=== PATIENT | male | born 1960 | race Caucasian/White ===

== ENCOUNTER 2017-08-10 15:10 | Inpatient (IN) | payer OTHER ==
[~2017-08-10] VITALS: Ht 185.4 cm; Wt 165.2 kg
[2017-08-10 15:22] LABS: GLUCOSE,POINT OF CARE 117 MG/DL (70-110)
[2017-08-10] MEDS ORDERED: AMLO-512 PO (15:23)
[2017-08-10] MEDS ORDERED: ALBU8HFA IH (15:23)
[2017-08-10] MEDS ORDERED: DIGO125T PO (15:23)
[2017-08-10] MEDS ORDERED: EVOL420W SQ (15:23)
[2017-08-10] MEDS ORDERED: FAMO20 PO (15:23)
[2017-08-10] MEDS ORDERED: HYDR-4061 PO (15:23)
[2017-08-10] MEDS ORDERED: CLOP75 PO (15:23)
[2017-08-10] MEDS ORDERED: BUPR75 PO (15:23)
[2017-08-10] MEDS ORDERED: SULF1TAB42 PO (15:23)
[2017-08-10] MEDS ORDERED: SLOWK8 PO (15:23)
[2017-08-10] MEDS ORDERED: LOSA50TA37 PO (15:23)
[2017-08-10] MEDS ORDERED: CEPH500 PO (15:23)
[2017-08-10] MEDS ORDERED: ASPI81 PO (15:23)
[2017-08-10] MEDS ORDERED: OMEP20 PO (15:23)
[2017-08-10] MEDS ORDERED: METF850T2 PO (15:23)
[2017-08-10] MEDS ORDERED: NITR2.5 PO (15:23)
[2017-08-10] MEDS ORDERED: ADAL40PE SQ (15:23)
[2017-08-10] MEDS ORDERED: ZOLP10TA7 PO (15:23)
[2017-08-10] MEDS ORDERED: GABA-531 PO (15:23)
[2017-08-10] MEDS ORDERED: EZET10 PO (15:23)
[2017-08-10] MEDS ORDERED: METO50TA12 PO (15:23)
[2017-08-10] MEDS ORDERED: BACL10TA PO (15:23)
[2017-08-10] MEDS ORDERED: FURO40 PO (15:23)
[2017-08-10] MEDS ORDERED: HYD25 PO (15:23)
[2017-08-10] MEDS ORDERED: KDUR10 PO (18:13)
[2017-08-10] MEDS ORDERED: BUPR150SR PO (18:13)
[2017-08-10] MEDS ORDERED: IPRATROPIUM BROMIDE 0.5 MG/2.5 ML NEB SOLUTION NEB ONE (18:15)
[2017-08-10] MEDS ORDERED: ALBUTEROL SULFATE 2.5 MG/0.5 ML NEB SOLUTION NEB ONE (18:15)
[2017-08-10] MEDS ORDERED: HYDROCODONE/ACETAMINOPHEN 5-325 MG TABLET PO ONE (18:15)
[2017-08-10 18:33] LABS: BASOPHILS % (AUTO) 0.4 % (0.0-2.0); EOSINOPHILS % (AUTO) 2.8 % (1.0-6.0); HEMATOCRIT 41.6 % (41-53); HEMOGLOBIN 14.2 g/dL (13.5-17.5); MEAN CORPUSCULAR HEMOGLOBIN 29.4 pg (26.0-34.0); MEAN CORPUSCULAR VOLUME 86 fL (80-100); MONOCYTES # (AUTO) 0.9 K/uL (0.1-1.0); MONOCYTES % (AUTO) 7.7 % (2.0-9.0); NEUTROPHILS % (AUTO) 73.1 % (40.0-70.0); PLATELET COUNT (AUTO) 287 K/uL (150-450); RED BLOOD CELL COUNT(AUTO) 4.81 MIL/uL (4.50-5.90); RED CELL DISTRIBUTION WIDTH 15.6 % (11.5-14.5); WHITE BLOOD COUNT (AUTO) 12.3 K/uL (4.5-11.0)
[2017-08-10] MEDS ORDERED: ALBUTEROL SULFATE HFA 90 MCG/PUFF 8 GM INHALER IH ONE (18:45)
[2017-08-10] MEDS ORDERED: VANCOMYCIN HCL 1 GM/D5% WATER 200 ML IV ONE (18:45)
[2017-08-10 18:50] LABS: ANION GAP 9 mmol/L (8-16); CARBON DIOXIDE 29 mmol/L (22-29); CHLORIDE 103 mmol/L (98-107); CREATININE 0.98 mg/dL (0.60-1.30); GLOMERULAR FILTR. RATE CALC > 60 mL/min (>60); POTASSIUM 4.2 mmol/L (3.5-5.1); SODIUM SERUM 141 mmol/L (136-145); UREA NITROGEN, BLOOD 11 mg/dL (7-18)
[2017-08-10 19:01] LABS: ALANINE AMINOTRANSFERASE 63 U/L (12-78); ALBUMIN 3.4 g/dL (3.4-5.0); ASPARTATE AMINOTRANSFERASE 36 U/L (15-37); BILIRUBIN,TOTAL 0.5 mg/dL (0.1-1.0); TOTAL PROTEIN, SERUM 7.6 g/dL (6.4-8.2)
[2017-08-10 19:12] LABS: B-TYPE NATRIURETIC PEPTIDE 15 pg/mL (0-100)
[2017-08-10] MEDS ORDERED: ACETAMINOPHEN 325 MG TABLET PO PRN (21:15)
[2017-08-10] MEDS ORDERED: MAGNESIUM HYDROXIDE SUSPENSION 30 ML UDCUP PO PRN (21:15)
[2017-08-10] MEDS ORDERED: ZOLPIDEM TARTRATE 5 MG TABLET PO PRN (21:15)
[2017-08-10] MEDS ORDERED: ALBUTEROL SULFATE 2.5 MG/0.5 ML NEB SOLUTION NEB PRN (21:15)
[2017-08-10] MEDS ORDERED: DEXTROSE 50%-WATER 25 GM/50 ML SYRINGE IVP PRN (21:15)
[2017-08-10] MEDS: VANCOMYCIN HCL 1 GM/D5% WATER 200 ML IV ONE ×2 (21:49→22:06)
[2017-08-10 23:19] VITALS: BP 145/76
[2017-08-11] MEDS: OxyCODONE HCL/ACETAMINOPHEN 5-325 MG TABLET PO PRN ×6 (00:26→23:55)
[2017-08-11] MEDS: HEPARIN SODIUM,PORCINE 5,000 UNITS/ML VIAL SQ SCH ×4 (00:26→23:56)
[2017-08-11] MEDS ORDERED: SODIUM CHLORIDE 0.9% 250 ML IV ONE (00:45)
[2017-08-11 05:11] VITALS: BP 156/85
[2017-08-11 05:33] LABS: GLUCOSE,POINT OF CARE 137 MG/DL (70-110)
[2017-08-11 07:01] LABS: ANION GAP 8 mmol/L (8-16); CALCIUM, TOTAL 8.6 mg/dL (8.8-10.5); CARBON DIOXIDE 29 mmol/L (22-29); CHLORIDE 104 mmol/L (98-107); CREATININE 0.96 mg/dL (0.60-1.30); GLOMERULAR FILTR. RATE CALC > 60 mL/min (>60); POTASSIUM 3.9 mmol/L (3.5-5.1); SODIUM SERUM 141 mmol/L (136-145); UREA NITROGEN, BLOOD 10 mg/dL (7-18)
[2017-08-11 08:09] VITALS: BP 130/70
[2017-08-11] MEDS: CLOPIDOGREL BISULFATE 75 MG TABLET PO SCH (09:00)
[2017-08-11] MEDS: DOCUSATE SODIUM 100 MG CAPSULE PO SCH ×2 (09:00→20:27)
[2017-08-11] MEDS: ASPIRIN 81 MG CHEWABLE TABLET PO SCH (09:01)
[2017-08-11] MEDS: PANTOPRAZOLE SODIUM 40 MG DR TABLET PO SCH (09:01)
[2017-08-11] MEDS: VANCOMYCIN HCL 1.5 GM in DEXTROSE 5%-WATER 250 ML IV SCH ×3 (09:02→23:56)
[2017-08-11 12:00] VITALS: BP 150/80
[2017-08-11] MEDS: INSULIN ASPART 100 UNITS/ML SQ PRN (12:01)
[2017-08-11 12:07] LABS: GLUCOSE COMMENT 1 Received Meds; GLUCOSE,POINT OF CARE 193 MG/DL (70-110)
[2017-08-11 16:04] VITALS: BP 144/93
[2017-08-11 18:02] LABS: GLUCOSE,POINT OF CARE 132 MG/DL (70-110)
[2017-08-11 20:00] VITALS: BP 124/69
[2017-08-11 20:58] LABS: GLUCOSE,POINT OF CARE 137 MG/DL (70-110)
[2017-08-11] MEDS ORDERED: ATORVASTATIN CALCIUM 20 MG TABLET PO SCH (21:00)
[2017-08-11 23:32] VITALS: BP 116/59
[2017-08-12 03:55] VITALS: BP 117/54
[2017-08-12] MEDS: OxyCODONE HCL/ACETAMINOPHEN 5-325 MG TABLET PO PRN ×2 (04:30→08:51)
[2017-08-12 06:19] LABS: BASOPHILS % (AUTO) 0.7 % (0.0-2.0); EOSINOPHILS % (AUTO) 3.4 % (1.0-6.0); HEMOGLOBIN 13.6 g/dL (13.5-17.5); LYMPHOCYTES # (AUTO) 2.1 K/uL (1.0-4.8); LYMPHOCYTES % (AUTO) 23.6 % (22.0-44.0); MEAN CORPUSCULAR HEMOGLOBIN 29.7 pg (26.0-34.0); MEAN CORPUSCULAR HGB CONC 33.9 G/dL (31.0-37.0); MEAN CORPUSCULAR VOLUME 87 fL (80-100); MONOCYTES # (AUTO) 0.5 K/uL (0.1-1.0); MONOCYTES % (AUTO) 5.7 % (2.0-9.0); NEUTROPHILS # (AUTO) 5.8 K/uL (1.8-7.7); NEUTROPHILS % (AUTO) 66.6 % (40.0-70.0); PLATELET COUNT (AUTO) 309 K/uL (150-450); RED BLOOD CELL COUNT(AUTO) 4.57 MIL/uL (4.50-5.90); RED CELL DISTRIBUTION WIDTH 15.1 % (11.5-14.5); WHITE BLOOD COUNT (AUTO) 8.7 K/uL (4.5-11.0)
[2017-08-12] MEDS: INSULIN ASPART 100 UNITS/ML SQ PRN ×2 (06:30→12:13)
[2017-08-12 06:47] LABS: ALANINE AMINOTRANSFERASE 45 U/L (12-78); ALBUMIN 2.7 g/dL (3.4-5.0); ANION GAP 6 mmol/L (8-16); ASPARTATE AMINOTRANSFERASE 22 U/L (15-37); BILIRUBIN,TOTAL 0.4 mg/dL (0.1-1.0); CALCIUM, TOTAL 8.5 mg/dL (8.8-10.5); CARBON DIOXIDE 30 mmol/L (22-29); CHLORIDE 104 mmol/L (98-107); CREATININE 0.99 mg/dL (0.60-1.30); GLOMERULAR FILTR. RATE CALC > 60 mL/min (>60); POTASSIUM 3.8 mmol/L (3.5-5.1); SODIUM SERUM 140 mmol/L (136-145); TOTAL PROTEIN, SERUM 6.7 g/dL (6.4-8.2); UREA NITROGEN, BLOOD 9 mg/dL (7-18)
[2017-08-12 07:10] VITALS: BP 137/80
[2017-08-12] MEDS: VANCOMYCIN HCL 1.5 GM in DEXTROSE 5%-WATER 250 ML IV SCH (07:50)
[2017-08-12] MEDS: HEPARIN SODIUM,PORCINE 5,000 UNITS/ML VIAL SQ SCH (07:52)
[2017-08-12] MEDS: ASPIRIN 81 MG CHEWABLE TABLET PO SCH (07:54)
[2017-08-12] MEDS: PANTOPRAZOLE SODIUM 40 MG DR TABLET PO SCH (07:54)
[2017-08-12] MEDS: DOCUSATE SODIUM 100 MG CAPSULE PO SCH (07:54)
[2017-08-12] MEDS: CLOPIDOGREL BISULFATE 75 MG TABLET PO SCH (07:54)
[2017-08-12 08:37] LABS: GLUCOSE COMMENT 1 Received Meds; GLUCOSE,POINT OF CARE 169 MG/DL (70-110)
[2017-08-12] MEDS ORDERED: BACTDSB PO (08:54)
[2017-08-12] MEDS ORDERED: PERFLUTREN PROTEIN-A MICROSPHERES 0.22 MG/ML 3 ML VIAL IVP ONE (11:00)
[2017-08-12 11:43] VITALS: BP 143/82
[2017-08-12 12:17] LABS: GLUCOSE COMMENT 1 Received Meds; GLUCOSE,POINT OF CARE 175 MG/DL (70-110)
== END 2017-08-12 13:03 | disposition home or self-care (01) | DRG 383 ==
LOC: EMS 15:12 → 6N 22:43
PROVIDERS: ADMIT Internal Medicine; ATTEND Internal Medicine
DX: L03.116 Cellulitis of left lower limb (principal); I27.2 Other secondary pulmonary hypertension; Z68.42 Body mass index [BMI] 45.0-49.9, adult; I11.0 Hypertensive heart disease with heart failure; I50.30 Unspecified diastolic (congestive) heart failure; E66.01 Morbid (severe) obesity due to excess calories; E11.9 Type 2 diabetes mellitus without complications; E78.5 Hyperlipidemia, unspecified; I71.4 Abdominal aortic aneurysm, without rupture; G47.33 Obstructive sleep apnea (adult) (pediatric); I25.10 Atherosclerotic heart disease of native coronary artery without angina pectoris; I45.10 Unspecified right bundle-branch block; E78.00 Pure hypercholesterolemia, unspecified; J44.9 Chronic obstructive pulmonary disease, unspecified; L40.9 Psoriasis, unspecified; Z86.79 Personal history of other diseases of the circulatory system; Z95.5 Presence of coronary angioplasty implant and graft; Z88.0 Allergy status to penicillin
CPT/HCPCS: 76700; 82962; 83735; 86140; 87040; 87070; 87081; 87205; 93005; 93306; 93925; 93971; 94640; 94660; 96365; 96366; 99285; J1644; J3370; J3535; J7050; J7060

== ENCOUNTER 2018-09-21 08:06 | Day surgery (SDC) | payer OTHER ==
[~2018-09-21] VITALS: Ht 185.4 cm; Wt 170.4 kg
[~2018-09-21 08:06] MED LIST: 0.9% SODIUM CHLORIDE 10 ML SYRINGE IVP PRN; ADAL40PE SQ; ALBU8HFA IH; AMLO-512 PO; ASPI81 PO; BACTDSB PO; BUPR150SR PO; CLOP75 PO; EZET10 PO; FURO40 PO; GABA-531 PO; HYDR-4061 PO; KDUR10 PO; LOSA50TA25 PO; METF-445 PO; METO-558 PO; NITR2.5 PO; OMEP20 PO; SULF1TAB42 PO
[2018-09-21] MEDS ORDERED: METOPROLOL TARTRATE 50 MG TABLET PO ONE (08:30)
[2018-09-21] MEDS ORDERED: SODIUM CHLORIDE 0.9% 0 ML IV ONE (09:02)
[2018-09-21 09:20] LABS: ANION GAP 8 mmol/L (8-16); CALCIUM, TOTAL 8.3 mg/dL (8.8-10.5); CARBON DIOXIDE 27 mmol/L (22-29); CHLORIDE 101 mmol/L (98-107); CREATININE 0.84 mg/dL (0.60-1.30); GLOMERULAR FILTR. RATE CALC > 60 mL/min (>60); GLUCOSE,RANDOM 308 mg/dL (70-110); POTASSIUM 4.3 mmol/L (3.5-5.1); SODIUM SERUM 136 mmol/L (136-145); UREA NITROGEN, BLOOD 20 mg/dL (7-18)
[2018-09-21] MEDS ORDERED: METOPROLOL TARTRATE 50 MG TABLET ONE (09:29)
[2018-09-21 10:19] LABS: GLUCOMETER DEV NAME(LOC) SDS 5; GLUCOSE,POINT OF CARE 289 MG/DL (70-110)
[2018-09-21] MEDS ORDERED: METOPROLOL TARTRATE 5 MG/5 ML VIAL IVP ONE ×3 (10:30→12:45)
[2018-09-21] MEDS ORDERED: METOPROLOL TARTRATE 5 MG/5 ML VIAL ONE ×3 (10:36→11:47)
[2018-09-21] MEDS ORDERED: NITROGLYCERIN 400 MCG/SUBLINGUAL SPRAY 4.9 GM BOTTLE SL ONE ×2 (10:48→12:10)
[2018-09-21] MEDS ORDERED: IOVERSOL 350 MG/ML 150 ML VIAL ONE ×2 (11:30→12:14)
[2018-09-21] MEDS ORDERED: SODIUM CHLORIDE 0.9% 100 ML ONE (11:30)
== END 2018-09-21 13:25 | disposition home or self-care (01) ==
LOC: SURGERY 08:06 → EDSTATUS 10:00 → SURGERY 13:25
PROVIDERS: ATTEND Internal Medicine Cardiovascular Disease
DX: I24.8 Other forms of acute ischemic heart disease (principal); I45.10 Unspecified right bundle-branch block; E78.5 Hyperlipidemia, unspecified; F17.210 Nicotine dependence, cigarettes, uncomplicated; J44.9 Chronic obstructive pulmonary disease, unspecified; M19.90 Unspecified osteoarthritis, unspecified site; E11.9 Type 2 diabetes mellitus without complications; I25.2 Old myocardial infarction; I11.9 Hypertensive heart disease without heart failure; I25.810 Atherosclerosis of coronary artery bypass graft(s) without angina pectoris; E78.00 Pure hypercholesterolemia, unspecified; M47.814 Spondylosis without myelopathy or radiculopathy, thoracic region; G47.33 Obstructive sleep apnea (adult) (pediatric); F15.11 Other stimulant abuse, in remission; F15.21 Other stimulant dependence, in remission; Z79.82 Long term (current) use of aspirin; Z86.74 Personal history of sudden cardiac arrest; Z79.891 Long term (current) use of opiate analgesic; Z79.4 Long term (current) use of insulin; Z79.01 Long term (current) use of anticoagulants; Z88.0 Allergy status to penicillin; Z72.89 Other problems related to lifestyle; Z95.5 Presence of coronary angioplasty implant and graft; Z95.1 Presence of aortocoronary bypass graft; Z87.01 Personal history of pneumonia (recurrent); Z79.899 Other long term (current) drug therapy; Z98.890 Other specified postprocedural states; Z82.49 Family history of ischemic heart disease and other diseases of the circulatory system; Z83.3 Family history of diabetes mellitus
CPT/HCPCS: 36415; 75571; 80048; 82962; 93005; J3490; J7050; Q9967; J7030

== ENCOUNTER 2020-05-07 06:27 | Day surgery (SDC) | payer OTHER ==
[2020-05-04 11:40] LABS: BASOPHILS % (AUTO) 0.8 % (0.0-2.0); EOSINOPHILS % (AUTO) 4.8 % (1.0-6.0); HEMATOCRIT 39.6 % (41-53); HEMOGLOBIN 13.4 g/dL (13.5-17.5); LYMPHOCYTES # (AUTO) 1.7 K/uL (1.0-4.8); LYMPHOCYTES % (AUTO) 19.1 % (22.0-44.0); MEAN CORPUSCULAR HEMOGLOBIN 29.5 pg (26.0-34.0); MEAN CORPUSCULAR HGB CONC 33.8 G/dL (31.0-37.0); MEAN CORPUSCULAR VOLUME 87 fL (80-100); MONOCYTES # (AUTO) 0.7 K/uL (0.1-1.0); MONOCYTES % (AUTO) 7.7 % (2.0-9.0); NEUTROPHILS % (AUTO) 67.6 % (40.0-70.0); PLATELET COUNT (AUTO) 268 K/uL (150-450); RED BLOOD CELL COUNT(AUTO) 4.55 MIL/uL (4.50-5.90); RED CELL DISTRIBUTION WIDTH 16.1 % (11.5-14.5)
[2020-05-04 11:51] LABS: ANION GAP 9 mmol/L (8-16); CALCIUM, TOTAL 8.8 mg/dL (8.8-10.5); CARBON DIOXIDE 27 mmol/L (22-29); CHLORIDE 103 mmol/L (98-107); CREATININE 0.98 mg/dL (0.60-1.30); GLOMERULAR FILTR. RATE CALC > 60 mL/min (>60); GLUCOSE,RANDOM 300 mg/dL (70-110); SODIUM SERUM 139 mmol/L (136-145); UREA NITROGEN, BLOOD 13 mg/dL (7-18)
[2020-05-04 11:54] LABS: PROTHROMBIN TIME 10.2 SEC (9.4-11.6)
[2020-05-04 12:00] LABS: ALANINE AMINOTRANSFERASE 33 U/L (12-78); ALBUMIN 3.3 g/dL (3.4-5.0); ALKALINE PHOSPHATASE 94 U/L (46-116); ASPARTATE AMINOTRANSFERASE 23 U/L (15-37); BILIRUBIN,TOTAL 0.3 mg/dL (0.1-1.0)
[~2020-05-07] VITALS: Ht 185.4 cm; Wt 154.5 kg
[~2020-05-07 06:27] MED LIST changes: -0.9% SODIUM CHLORIDE 10 ML SYRINGE IVP PRN; -ADAL40PE SQ; -AMLO-512 PO; +ASPI-728 PO; -ASPI81 PO; +BACL10TA PO; -BACTDSB PO; -BUPR150SR PO; +CARV6 PO; -CLOP75 PO; +CLOP75TA3 PO; +DOXA2TAB PO; -EZET10 PO; +FAMO20 PO; -FURO40 PO; +GABA-1181 PO; -GABA-531 PO; +GEMF600T5 PO; -HYDR-4061 PO; +HYDR10TA31 PO; +INSLAN SQ; +INSU100V SQ; -KDUR10 PO; -LOSA50TA25 PO; +LOSA50TA37 PO; -METF-445 PO; -METO-558 PO; +MONT10TA21 PO; +NIFE-79 PO; -NITR2.5 PO; -OMEP20 PO; +POTA-92 PO; +QUET25TA PO; +ROSU20TA23 PO; +SODIUM CHLORIDE 0.9% 1,000 ML ONE; -SULF1TAB42 PO; +TIOT185 IH
[2020-05-07] MEDS ORDERED: SODIUM CHLORIDE 0.9% 1,000 ML IV ONE (06:30)
[2020-05-07 07:22] LABS: GLUCOMETER DEV NAME(LOC) SDS.; GLUCOSE,POINT OF CARE 229 MG/DL (70-110)
[2020-05-07] MEDS ORDERED: HEPARIN SODIUM,PORCINE 1,000 UNITS/ML 10 ML VIAL ONE (08:18)
[2020-05-07] MEDS ORDERED: VERAPAMIL HCL 2.5 MG/ML 2 ML VIAL ONE (08:18)
[2020-05-07] MEDS ORDERED: NITROGLYCERIN 50 MG/D5% WATER 250 ML ONE (08:19)
[2020-05-07] MEDS ORDERED: SODIUM BICARBONATE 50 MEQ/50 ML VIAL ONE (08:19)
[2020-05-07] MEDS ORDERED: IOHEXOL 300 MG/ML 150 ML VIAL ONE (08:19)
[2020-05-07] MEDS ORDERED: LIDOCAINE/PF 1% 30 ML VIAL ONE (08:19)
[2020-05-07] MEDS ORDERED: HEPARIN SODIUM 1000 UNITS/NS 1,000 ML ONE (08:19)
[2020-05-07] MEDS ORDERED: HEPARIN SODIUM 1000 UNITS/NS 1,000 ML IARTER ONE (09:12)
[2020-05-07] MEDS ORDERED: SODIUM CHLORIDE 0.9% 500 ML IV ONE (09:12)
[2020-05-07] MEDS ORDERED: LIDOCAINE 1% 30 ML/SOD BICARB 8.4% 4 ML SQ ONE (09:15)
[2020-05-07] MEDS ORDERED: IOHEXOL 300 MG/ML 150 ML VIAL ICOR ONE (09:15)
[2020-05-07] MEDS ORDERED: MIDAZOLAM HCL 2 MG/2 ML VIAL ONE ×2 (09:22→09:46)
[2020-05-07] MEDS ORDERED: FentaNYL CITRATE-PF 100 MCG/2 ML VIAL ONE (09:22)
[2020-05-07] MEDS ORDERED: FentaNYL CITRATE-PF 100 MCG/2 ML VIAL IVP ONE (09:45)
[2020-05-07] MEDS ORDERED: MIDAZOLAM HCL 2 MG/2 ML VIAL IVP ONE ×2 (09:45→10:00)
[2020-05-07] MEDS ORDERED: NITROGLYCERIN/D5W 50 MG/250 ML IV BOTTLE IARTER ONE (10:00)
[2020-05-07] MEDS ORDERED: VERAPAMIL HCL 2.5 MG/ML 2 ML VIAL IARTER ONE (10:00)
[2020-05-07 10:39] VITALS: BP 135/75
[2020-05-07 10:45] VITALS: BP 137/77
[2020-05-07] MEDS ORDERED: HEPARIN SODIUM,PORCINE 1,000 UNITS/ML 10 ML VIAL IV ONE (11:00)
[2020-05-07] MEDS ORDERED: SODIUM CHLORIDE 0.9% 1,000 ML IV SCH (11:00)
[2020-05-07] MEDS ORDERED: HEPARIN SODIUM,PORCINE 1,000 UNITS/ML 10 ML VIAL IVP ONE (11:00)
== END 2020-05-07 15:05 | disposition home or self-care (01) ==
LOC: CATHLAB 06:27
PROVIDERS: ATTEND Internal Medicine Cardiovascular Disease
DX: R94.39 Abnormal result of other cardiovascular function study (principal); I25.10 Atherosclerotic heart disease of native coronary artery without angina pectoris; I10 Essential (primary) hypertension; J44.9 Chronic obstructive pulmonary disease, unspecified; G47.33 Obstructive sleep apnea (adult) (pediatric); E66.01 Morbid (severe) obesity due to excess calories; G47.30 Sleep apnea, unspecified; Z68.41 Body mass index [BMI] 40.0-44.9, adult; Z95.5 Presence of coronary angioplasty implant and graft; Z79.4 Long term (current) use of insulin; Z79.899 Other long term (current) drug therapy; Z88.0 Allergy status to penicillin; Z88.8 Allergy status to other drugs, medicaments and biological substances; Z11.59 Encounter for screening for other viral diseases; Z89.421 Acquired absence of other right toe(s)
CPT/HCPCS: 36415; 80053; 82962; 85025; 85610; 85730; 87635; 93005; 93460; 99152; 99153; J1644 ×2; J2250; J3010; J3490 ×4; J7030; Q9967

== ENCOUNTER 2024-10-17 06:09 | Day surgery (SDC) | payer MEDICARE, OTHER ==
[~2024-10-17] VITALS: Ht 185.4 cm; Wt 103.2 kg
[~2024-10-17 06:09] MED LIST changes: +ALBU18HF12 IH; -ALBU8HFA IH; +ASPI-1450 PO; -ASPI-728 PO; -CLOP75TA3 PO; +CLOP75TA60 PO; -DOXA2TAB PO; +DOXA2TAB86 PO; +GEMF-77 PO; -GEMF600T5 PO; +LOSA-382 PO; -LOSA50TA37 PO; +MONT-35 PO; -MONT10TA21 PO; -ROSU20TA23 PO; +ROSU20TA98 PO; -SODIUM CHLORIDE 0.9% 1,000 ML ONE
[2024-10-17] MEDS ORDERED: SODIUM CHLORIDE 0.9% 1,000 ML IV ONE (07:00)
[2024-10-17] MEDS ORDERED: SODIUM CHLORIDE 0.9% 0 ML ONE (07:15)
[2024-10-17] MEDS ORDERED: EVOL140P3 SQ (07:39)
[2024-10-17] MEDS ORDERED: FAMO40TA7 PO (07:39)
[2024-10-17] MEDS ORDERED: MOME13HF11 IH (07:39)
[2024-10-17] MEDS ORDERED: RIVA2.5T3 PO (07:39)
[2024-10-17] MEDS ORDERED: ICOS1CAP PO (07:39)
[2024-10-17] MEDS ORDERED: EZET10TA57 PO (07:39)
== END 2024-10-17 07:55 | disposition home or self-care (01) ==
LOC: SURGERY 06:09
PROVIDERS: ATTEND Internal Medicine Critical Care Medicine
DX: R05.3 Chronic cough (principal); R91.8 Other nonspecific abnormal finding of lung field; Z53.8 Procedure and treatment not carried out for other reasons; I45.10 Unspecified right bundle-branch block; I10 Essential (primary) hypertension; I25.10 Atherosclerotic heart disease of native coronary artery without angina pectoris; E78.00 Pure hypercholesterolemia, unspecified; J44.9 Chronic obstructive pulmonary disease, unspecified; G47.30 Sleep apnea, unspecified; M19.90 Unspecified osteoarthritis, unspecified site; Z87.891 Personal history of nicotine dependence; Z79.01 Long term (current) use of anticoagulants; Z79.82 Long term (current) use of aspirin; Z79.899 Other long term (current) drug therapy; Z95.1 Presence of aortocoronary bypass graft; Z95.5 Presence of coronary angioplasty implant and graft; Z98.890 Other specified postprocedural states; Z88.0 Allergy status to penicillin; Z88.8 Allergy status to other drugs, medicaments and biological substances
CPT/HCPCS: 93005; J7030

== ENCOUNTER 2024-10-26 06:38 | Day surgery (SDC) | payer MEDICARE, OTHER ==
[~2024-10-26] VITALS: Ht 185.4 cm; Wt 104.5 kg
[~2024-10-26 06:38] MED LIST changes: -CARV6 PO; -CLOP75TA60 PO; -DOXA2TAB86 PO; +EVOL140P3 SQ; +EZET10TA57 PO; -FAMO20 PO; +FAMO40TA7 PO; -GEMF-77 PO; -HYDR10TA31 PO; +ICOS1CAP PO; -INSLAN SQ; -INSU100V SQ; +MOME13HF11 IH; -MONT-35 PO; -POTA-92 PO; +RIVA2.5T3 PO; -ROSU20TA98 PO; +SODIUM CHLORIDE 0.9% 1,000 ML ONE; -TIOT185 IH
[2024-10-26] MEDS: SODIUM CHLORIDE 0.9% 1,000 ML IV ONE (07:57)
[2024-10-26] MEDS ORDERED: MIDAZOLAM HCL 2 MG/2 ML VIAL ONE (07:58)
[2024-10-26] MEDS ORDERED: FentaNYL CITRATE PF 100 MCG/2 ML VIAL ONE (07:58)
[2024-10-26 08:10] LABS: GLUCOMETER DEV NAME(LOC) SDS.; GLUCOSE,POINT OF CARE 110 MG/DL (70-110)
[2024-10-26 09:51] VITALS: PULSE 68; RESP 18; O2SAT 96
[2024-10-26] MEDS ORDERED: MethylPREDNISolone SOD SUCC 125 MG/2 ML VIAL ONE (09:51)
[2024-10-26] MEDS: MIDAZOLAM HCL 2 MG/2 ML VIAL IVP ONE (09:54)
[2024-10-26] MEDS: FentaNYL CITRATE PF 100 MCG/2 ML VIAL IVP ONE (09:56)
[2024-10-26] MEDS: MethylPREDNISolone SOD SUCC 125 MG/2 ML VIAL IVP ONE (10:24)
== END 2024-10-26 11:50 | disposition home or self-care (01) ==
LOC: SURGERY 06:38
PROVIDERS: ATTEND Internal Medicine Critical Care Medicine
DX: R05.3 Chronic cough (principal); R06.1 Stridor; I45.10 Unspecified right bundle-branch block; I10 Essential (primary) hypertension; E11.9 Type 2 diabetes mellitus without complications; E78.00 Pure hypercholesterolemia, unspecified; J44.9 Chronic obstructive pulmonary disease, unspecified; G47.30 Sleep apnea, unspecified; Z79.899 Other long term (current) drug therapy; Z95.1 Presence of aortocoronary bypass graft; Z95.5 Presence of coronary angioplasty implant and graft; Z98.890 Other specified postprocedural states; Z88.0 Allergy status to penicillin; Z88.8 Allergy status to other drugs, medicaments and biological substances
CPT/HCPCS: 82962; 87206; 87101; 87220; 87070; 88108; 93005; 31623; 31624; 71045; 87015; J3010; J2250; J2919; J7030